=== PATIENT | male | born 1995 | race Two or more races ===

== ENCOUNTER 2023-09-04 06:42 | Emergency (ER) | payer OTHER ==
[~2023-09-04] VITALS: Ht 167.6 cm; Wt 66.8 kg
[2023-09-04 06:54] VITALS: BP 133/71; PULSE 72; RESP 16; TEMP 98.2
[2023-09-04] MEDS ORDERED: TRANEXAMIC ACID 1,000 MG/10 ML VIAL TP ONE (07:00)
== END 2023-09-04 08:54 ==
LOC: EMS 06:42
DX: K08.89 Other specified disorders of teeth and supporting structures (principal)
CPT/HCPCS: 99281; Z7502